=== PATIENT | female | born 1970 | race Caucasian/White ===

== ENCOUNTER 2021-05-01 19:41 | Emergency (ER) | payer OTHER ==
[~2021-05-01 19:41] MED LIST: PERCOCET 5/325 T1 EA PO; PREDNISONE20 MG PO; [UNRECOGNIZED DRUG - OTHER]
[2021-05-01] MEDS ORDERED: TORADOL 10 MG T10 MG PO (23:04)
== END 2021-05-01 23:50 | disposition home or self-care (01) ==
LOC: ER1 19:41
DX: M54.6 Pain in thoracic spine (principal); E11.9 Type 2 diabetes mellitus without complications
CPT/HCPCS: 70450; 72125; 96372; 99285; J1885